=== PATIENT | female | born 1950 | race Caucasian/White ===

== ENCOUNTER 2021-04-20 09:49 | Outpatient (CLI) | payer OTHER, SELFPAY ==
--- NOTE | ~2021-04-20 | MM_ITS ---
EXAMINATION: MM screening [facility] HISTORY: Screening TECHNIQUE: Craniocaudal and mediolateral oblique 3-D tomosynthesis images were obtained and synthetic 2-D images were generated. CAD analysis was submitted and interpreted. COMPARISON: Comparison to multiple prior studies sequentially, with oldest reviewed study dated 05/23. BREAST PARENCHYMAL COMPOSITION: There are scattered areas of fibroglandular density. FINDINGS: There is no evidence of suspicious mass, calcification, or architectural distortion to sugg est malignancy in either breast. There has been no suspicious interval change. IMPRESSION: 1. No mammographic evidence of malignancy. 2. Recommend routine screening mammography in one year. BI-RADS Category 1: Negative Reviewed, dictated and finalized at location A.
--- NOTE | ~2021-04-20 | DEXA_ITS ---
Bone Density Report Name: Alina Lockhart Age: 71 Sex: Female Ethnicity: White Date of : 1950 Indication: postmenopausal; height loss; prior fracture; Referring Provider: Kandy Griffith Study: Bone densitometry was performed. Exam Date: April 20, 2021 Accession number: [id number] Bone Density: Region BMD T-score Z-score Classification AP Spine (L1-L4) 1.182 1.2 3.5 Normal Femoral Neck (Left) 0.838 -0.1 1.8 Normal Total Hip (Left) 0.973 0.3 1.9 Normal Total Hip Bilateral Avg 0.946 0.1 1.7 Normal Femoral Neck (Right) 0.836 -0.1 1.8 Normal Total Hip (Right) 0.918 -0.2 1.4 Normal World Health Organization criteria for BMD impression classify patients as: Normal (T-score at or above -1.0), Osteopenia (T-score between -1.0 and -2.5), or Osteoporosis (T-score at or below -2.5). 10-year Fracture Risk: FRAX not reported because: All T-scores for Spine Total, Hip Total, Femoral Neck at or above -1.0 Previous Exams: Region Exam Age BMD T-score BMD Change BMD Change Date g/cm2 vs Baseline vs Previous Total Hip(Left) 04/20/2021 71 0.973 0.3 -0.033(-3.3%)* -0.033(-3.3%)* 10/07/2017 67 1.006 0.5 Total Hip(Right) 04/20/2021 71 0.918 -0.2 -0.107(-10.5%) -0.107(-10.5%) 10/07/2017 67 1.026 0.7 *Denotes significance at 95% confidence level, LSC for Total Hip = 0.027 g/cm2 Clinical Information Provided by Patient: Has had a low trauma fracture Has used the following medications: Vitamin D, Calcium Patient maximum height was 63 Menopause Age: 47 No regular weight bearing exercise Drinks caffeinated beverages Onset of menses at age 12 Number of children 0 Impression: The patient has normal bone mass. The patient has risk factors, including: previous fracture. The BMD for the Total Hip(Left) decreased, changing by -3.3% since the last DXA exam. The BMD for the Total Hip(Right) decreased, changing by -10.5% since the last DXA exam. Discussion: BONE DENSITY IS ABOVE THE MINIMUM DESIRABLE LEVEL AT ALL SKELETAL SITES TESTED. This patient?s bone mineral density is above the minimum desirable level (T-score -1.0 or better) at all sites measured. The patient should follow a healthful lifestyle (good nutrition with adequate calcium and vitamin D, and appropriate weight-bearing exercise). Follow-Up: Consider repeating this study in 3 to 4 years to reassess this patient's status, or sooner if there is some new clinical indication. Reported by: MIRANDA on 04/20/2021 10:20:00 AM.
== END 2021-04-20 09:50 | disposition home or self-care (01) ==
LOC: ANHIMG 09:50
PROVIDERS: PCP Family Medicine; Visit Provider Family Medicine
DX: Z12.31 Encounter for screening mammogram for malignant neoplasm of breast (principal); Z78.0 Asymptomatic menopausal state
CPT/HCPCS: 77063; 77067; 77080

== ENCOUNTER 2022-02-27 13:54 | Outpatient (CLI) | payer OTHER, SELFPAY ==
--- NOTE | ~2022-02-27 | XR_ITS ---
XR hip RT 2V w AP pelvis DATE: 02/27/2022 14:35 INDICATION: Chronic right hip pain TECHNIQUE: AP pelvis. AP and lateral views of right hip COMPARISON: 03/04/2018 pelvis and bilateral hips FINDINGS: Degenerative disc disease of the lumbar spine. The pubic symphysis and sacroiliac joints are intact. There is degenerative change at the sacroiliac joints. Mild bilateral hip osteoarthritis. No pelvic fracture or bone destruction. No fracture or dislocation , avascular necrosis or bone destruction of the right hip. IMPRESSION: Mild bilateral hip osteoarthritis Degenerative change at the sacral iliac joints and degenerative disc disease of the lumbar spine Reviewed, dictated and finalized at location B.
--- NOTE | ~2022-02-27 | XR_ITS ---
EXAM: XR foot LT 2V DATE: 02/27/2022 14:36 HISTORY: M79.672 - Pain ACROSS BASES OF ALL TOES X 2MO POST FALL . COMPARISON: None available. FINDINGS: Decreased mineralization. Several toes are held in flexion which limits evaluation. Linear lucency in the navicular. Otherwise no fracture or dislocation. No lytic or blastic lesion. Moderate hallux valgus. Plantar and Achilles enthesopathy. No erosion or periosteal change. Soft tissues with in normal limits. IMPRESSION: Linear lucency in navicular bone, may represent nondisplaced fracture versus artifact. Co nsider CT of the foot to exclude fracture, particularly if there is mid foot pain/tenderness. Reviewed, dictated and finalized at location K. IMPRESSION: Linear lucency in navicular bone, may represent nondisplaced fractu re versus artifact. Consider CT of the foot to exclude fracture, particularly i f there is mid foot pain/tenderness.
--- NOTE | ~2022-02-27 | XR_ITS ---
XR lumbar spine 2-3V DATE: 02/27/2022 14:35 INDICATION: Low back chronic pain radiating to right hip TECHNIQUE: AP, lateral, coned lateral lumbosacral views COMPARISON: 03/04/2018 lumbar spine FINDINGS: Diffuse osteopenia. There is mild dextro scoliosis of the lumbar spine. Severe degenerative disease at L1-2, L2-3 and L3-4. Moderate degenerative disc disease at L4-5 and L5-S1. No fracture or dislocation or spondylolisthesis. The lumbar pedicles are intact. The sacroiliac joint s are intact. IMPRESSION: Multilevel degenerative disc disease, most prominent in the upper and mid lumbar spine Osteopenia Mild dextroscoliosis Reviewed, dictated and finalized at location B. IMPRESSION: Multilevel degenerative disc disease, most prominent in the upper a nd mid lumbar spine Osteopenia Mild dextroscoliosis
== END 2022-02-27 13:55 | disposition home or self-care (01) ==
PROVIDERS: PCP Family Medicine; Visit Provider Family Medicine
DX: M79.672 Pain in left foot (principal); M51.36 Other intervertebral disc degeneration, lumbar region; M85.88 Other specified disorders of bone density and structure, other site; M16.0 Bilateral primary osteoarthritis of hip; M53.3 Sacrococcygeal disorders, not elsewhere classified
CPT/HCPCS: 72100; 73502; 73620

== ENCOUNTER 2022-03-15 10:00 | Outpatient (CLI) | payer OTHER, SELFPAY ==
--- NOTE | ~2022-03-15 | CT_ITS ---
EXAMINATION: CT foot LT wo con DATE: 03/15/2022 10:34 INDICATION: Left foot pain. Possible navicular fracture on prior radiographs. TECHNIQUE: High resolution computed tomography (CT) of the left foot and ankle was performed without intravenous contrast. Additional sagittal and coronal reconstructions were performed. Automated expos ure control and iterative reconstruction technique were employed. The dose-length product was 283.96 mGy-cm. COMPARISON: Radiographs dated 02/27/2022 FINDINGS: Hallux valgus. Second hammertoe deformity and the third and fourth toes are clawed. No acute fracture . Polyarticular osteoarthritis, severe at the articulation between the head of the first metatarsal a nd the fibular sesamoid which appears sclerotic could be seen with sesamoiditis. The tibial sesamoid the chest is diminutive. Mild osteoarthritis at the majority the remaining joints throughout the left foot. Small corticated either degenerative loose osteochondral body versus heterotopic ossification situated between the anterior process of the calcaneus and the plantar margin of the proximal navicul ar. This large Achilles calcaneal spur with a few small splenic ossicles in the distal Achilles tendo n. Small plantar calcaneal spur. Soft tissues are unremarkable. No ankle joint effusion. IMPRESSION: 1. Chronic degenerative skeletal changes detailed above. No acute fracture. Reviewed, dictated and finalized at location A.
== END 2022-03-15 10:01 | disposition home or self-care (01) ==
PROVIDERS: PCP Family Medicine; Visit Provider Family Medicine
DX: M19.072 Primary osteoarthritis, left ankle and foot (principal)
CPT/HCPCS: 73700

== ENCOUNTER 2022-05-25 11:00 | Outpatient (RCR) | payer OTHER, SELFPAY ==
--- NOTE | 2022-04-13 13:29 | PTOPEVAL1 ---
Assessment and note entered by Barb Castelan, PT Evaluation Information Assessment Status Evaluation Diagnosis low back and right hip Onset many years for the back, right hip for this last year Subjective Information Back pain last 20 years. Saw a back specialist years ago, was told to swim every day b/c of spinal stenosis. No other providers have stated spinal stenosis. Feels right hip started bothering because of the way she walks Reported Pain Level Pain Score 1/10 low back, 0/10 right hip currently. Pain increases to an 8/10 in both sites at times: Self Report Assessment PT Clinical Summary Pt presents w/ c/o low back pain that she reports is chronic in nature and has in the last year had increasing right hip pain she feels is a result of how she walks (prior left foot injury). Evaluation shows decreased lumbar ROM, tight hamstrings and piriformis bilaterally, tenderness and tone bilat glute meds, lumbar paraspinals L>R, and decreased strength of lumbopelvic musculature especially of the transverse abdominus. Pt also demo's lumbopelvic instability with returning to neutral standing from lumbar AROM testing consistent with the lumbopelvic weakness. Today pt was educated on therapist's findings, and plan of care to address deficits and improve pt pain levels. Electrical stimulation also performed at end of session and HEP of cryotherapy to her low back provided. Plan of Care Interventions Electrical Stimulation,Hot Pack/Cold Pack,Manual Therapy,Neuro Re-education,Therapeutic Activities, Therapeutic Exercise,Ultrasound Other Interventions consider back brace to improve pain while in process of strengthening PT Services Indicated Yes Treatment Frequency and 2x weekly x 4 weeks Duration These treatments will address the objective and functional deficits as defined above. The patient will be advanced safely and appropriately in order for the patient to progress towards his/her prior level of function. Additional exercises will be introduced and as well as a comprehensive home exercise program upon discharge, if needed, ?to ensure carryover of functional gains achieved in the clinic. This treatment plan has been reviewed and agreement upon by the patient.
--- NOTE | 2022-05-28 14:26 | BUPTOPDC ---
Assessment and note entered by Barb Castelan, PT Evaluation Information Diagnosis low back and right hip Onset many years for the back, right hip for this last year Subjective Information Pt reports feeling much improved since starting therapy. Has had instances of 0/10 pain and at worst recently has been 3/10 in her back and hip. Reported Pain Level Pain Score 2,2: Self Report Additional Pain Score Comments States was mulching leaves this weekend, broke it up into three days. Assessment PT Clinical Summary Pt aruna's improved flexibility, improved lumbar ROM, improved strength of core, improve pain, and reports improved abilities and function. She has met her pain goals, her flexibility and ROM goals, education goals. Only goal unmet is strength of hips however pt has been provided home exercises for this. Pt has been educated on when appropriate to seek therapy if needed in the future and feels confident in her exercises and abilities, is happy with her progress and feels ready to be finished with therapy. Thus pt is being discharged from PT at this time. Plan of Care Interventions Electrical Stimulation,Hot Pack/Cold Pack,Manual Therapy,Neuro Re-education,Therapeutic Activities, Therapeutic Exercise,Ultrasound Other Interventions consider back brace to improve pain while in process of strengthening
== END 2022-06-01 10:09 | disposition home or self-care (01) ==
LOC: ANHHIPT 11:00
PROVIDERS: PCP Family Medicine; Visit Provider Family Medicine
DX: M54.50 Low back pain, unspecified (principal); M25.551 Pain in right hip
CPT/HCPCS: 97014; 97110; 97140; 97162; G0283

== ENCOUNTER 2022-05-30 00:57 | Day surgery (SDC) | payer OTHER, SELFPAY ==
[2022-05-22 13:40] VITALS: BMI 33.5
--- NOTE | 2022-05-29 16:50 | PM.HPGS ---
History of Present Illness History of Present Illness Consent: Risks, benefits, and alternatives have been discussed and questions answered. Patient agrees to proceed with procedure. Chief complaint: hx of colon polyps Narrative: Alina Lockhart is a 72 year old female referred for colon cancer screening. She had a tubular adenoma removed a little over 3 years ago. Review of Systems Review of Systems: All systems reviewed & are unremarkable except as noted in HPI and below PMFSH Past Medical History Medical History Depression GERD (gastroesophageal reflux disease) Gout High cholesterol History of shingles HTN (hypertension) Hypolipidemia Surgical History Surgical History H/O tubal ligation History of cholecystectomy History of ventral hernia repair laparoscopic incarcerated ventral hernia repair with Progrip mesh, DaVinci assisted Hx of tonsillectomy Family History Family History Mother Family history of multiple sclerosis Hypertension Family history of cardiovascular disease Cerebrovascular accident Father Hypertension Family history of gastrointestinal disorder Family history of congestive heart failure Grandparent Family history of cardiovascular disease Family history of congestive heart failure Other Diabetes mellitus Social History Social History Smoking status: Never smoker Second hand tobacco smoke exposure: No Alcohol intake: never Substance use: never Substance use type: does not use Living arrangements: alone Gender identity (if verbalized by the patient): Female Spiritual care concerns: No Agree to blood products: Yes Meds Home Medications and Allergies Home Medications Medication Instructions Recorded Confirmed Type multivitamin 1 tablet PO DAILY 06/11/19 05/22/22 History sertraline 100 mg tablet 100 mg PO DAILY 07/06/19 05/22/22 History trazodone 100 mg tablet 100 mg PO HS 07/06/19 05/22/22 History cholestyramine-aspartame 4 gram See Rx Instructions .Route 01/02/22 05/22/22 Rx oral powder for susp in a packet .COMPLEX #180 packets (Prevalite) deutetrabenazine 6 mg tablet 6 mg PO BID 02/26/22 05/22/22 History (Austedo) oxybutynin chloride 5 mg See Rx Instructions .Route 03/01/22 05/22/22 Rx tablet,extended release 24 hr .COMPLEX #90 tabs allopurinol 300 mg tablet See Rx Instructions .Route 03/05/22 05/22/22 Rx .COMPLEX #90 tabs atorvastatin 20 mg tablet See Rx Instructions .Route 03/05/22 05/22/22 Rx .COMPLEX #90 tabs omeprazole 20 mg capsule,delayed See Rx Instructions .Route 03/05/22 05/22/22 Rx release .COMPLEX #90 caps lisinopril 20 mg tablet See Rx Instructions .Route 03/30/22 05/22/22 Rx .COMPLEX #90 tabs triamterene 37.5 See Rx Instructions .Route 04/09/22 05/22/22 Rx mg-hydrochlorothiazide 25 mg .COMPLEX #90 caps capsule Allergies Allergy/AdvReac Type Severity Reaction Status Date / Time No Known Allergies Allergy Verified 05/30/22 09:24 Exam Const: General: alert Orientation/consciousness: patient oriented x3 Resp: Auscultation: clear to auscultation bilaterally Cardio: Rhythm: regular rhythm GI: GI Palp: Yes Soft to palpation and No Tenderness to palpation present (GI) Neuro: General: patient oriented x3 Assessment and Plan Assessment and plan (1) Colon cancer screening: Code(s): Z12.11 - Encounter for screening for malignant neoplasm of colon Status: Acute Assessment and Plan: Colonoscopy with possible biopsy or polypectomy or cautery or injection of substances.
[2022-05-30 09:31] VITALS: BP 158/89; PULSE 81; RESP 18; TEMP 37.2; O2SAT 99
[2022-05-30] MEDS: LACTATED RINGERS 1,000 ML 150 ML IV CONT (09:48)
--- NOTE | 2022-05-30 10:15 | WPDANESEPPF ---
Anes - Initial Pre Proc Eval Procedure: Operation Date: 05/30/22 11:00 Proposed Procedures p Screening Colonoscopy - Zhou Núñez MD Date/Time: 05/30/22 10:15 Surgeon: Zhou Núñez MD Pre Op Diagnosis: hx of colon polyps Patient Data Age: 72 Gender: F Height: 1.6 m Weight: 86.7 kg Last Vital Signs Temp 98.9 F 05/30/22 09:31 Pulse 81 05/30/22 09:31 Resp 18 05/30/22 09:31 BP 158/89 H 05/30/22 09:31 Pulse Ox 99 05/30/22 09:31 O2 Del Method Room Air 05/30/22 09:31 Allergies Allergy/AdvReac Type Severity Reaction Status Date / Time No Known Allergies Allergy Verified 05/30/22 09:24 Home Medications Medication Instructions Recorded Confirmed Type multivitamin 1 tablet PO DAILY 06/11/19 05/22/22 History sertraline 100 mg tablet 100 mg PO DAILY 07/06/19 05/22/22 History trazodone 100 mg tablet 100 mg PO HS 07/06/19 05/22/22 History cholestyramine-aspartame 4 gram See Rx Instructions .Route 01/02/22 05/22/22 Rx oral powder for susp in a packet .COMPLEX #180 packets (Prevalite) deutetrabenazine 6 mg tablet 6 mg PO BID 02/26/22 05/22/22 History (Austedo) oxybutynin chloride 5 mg See Rx Instructions .Route 03/01/22 05/22/22 Rx tablet,extended release 24 hr .COMPLEX #90 tabs allopurinol 300 mg tablet See Rx Instructions .Route 03/05/22 05/22/22 Rx .COMPLEX #90 tabs atorvastatin 20 mg tablet See Rx Instructions .Route 03/05/22 05/22/22 Rx .COMPLEX #90 tabs omeprazole 20 mg capsule,delayed See Rx Instructions .Route 03/05/22 05/22/22 Rx release .COMPLEX #90 caps lisinopril 20 mg tablet See Rx Instructions .Route 03/30/22 05/22/22 Rx .COMPLEX #90 tabs triamterene 37.5 See Rx Instructions .Route 04/09/22 05/22/22 Rx mg-hydrochlorothiazide 25 mg .COMPLEX #90 caps capsule Patient hx anesthesia problems: none Family hx anesthesia problems: none Results Review: All pre-operative results and documents have been reviewed as part of the pre-operative evaluation. [facility] Past Medical History Medical History (Updated 05/29/22 @ 16:50 by Zhou Núñez MD) Depression GERD (gastroesophageal reflux disease) Gout High cholesterol History of shingles HTN (hypertension) Hypolipidemia Surgical History Surgical History H/O tubal ligation History of cholecystectomy History of ventral hernia repair laparoscopic incarcerated ventral hernia repair with Progrip mesh, DaVinci assisted Hx of tonsillectomy Family History Family History Mother Family history of multiple sclerosis Hypertension Family history of cardiovascular disease Cerebrovascular accident Father Hypertension Family history of gastrointestinal disorder Family history of congestive heart failure Grandparent Family history of cardiovascular disease Family history of congestive heart failure Other Diabetes mellitus Social History Social History Smoking status: Never smoker Second hand tobacco smoke exposure: No Alcohol intake: never Substance use: never Substance use type: does not use Living arrangements: alone Gender identity (if verbalized by the patient): Female Spiritual care concerns: No Agree to blood products: Yes Anes - Eval Final PreProcedure Day of Procedure 05/30/22 10:15 Patient weight: obese Heart: regular rate and rhythm Lungs: clear to auscultation Airway: Mallampati scale class II Neurological: alert and oriented Last oral intake: >/= 8 hours ASA classification: III Emergent: no Anesthetic plan: proceed Anesthesia type and monitoring: general GIVS and standard monitoring Results Review: All pre-operative results and documents have been reviewed as part of the pre-operative evaluation. Informed Consent: The patient's anesthetic plan and i
[2022-05-30 10:44] VITALS: BP 115/76; PULSE 62; RESP 14; O2SAT 97
[2022-05-30 10:54] VITALS: BP 132/82; PULSE 73; RESP 20; O2SAT 95
[2022-05-30 11:04] VITALS: BP 147/90; PULSE 72; RESP 15; O2SAT 98
== END 2022-05-30 11:18 | disposition home or self-care (01) ==
PROVIDERS: PCP Family Medicine; Visit Provider Internal Medicine Gastroenterology
PROC: 0DJD8ZZ Inspection of Lower Intestinal Tract, Via Natural or Artificial Opening Endoscopic (ICD-10-PCS; CPT 45378; principal; 2022-05-30 11:00)
DX: Z12.11 Encounter for screening for malignant neoplasm of colon (principal); K64.8 Other hemorrhoids; Z86.010 Personal history of colon polyps; I10 Essential (primary) hypertension; E78.00 Pure hypercholesterolemia, unspecified; M10.9 Gout, unspecified; K21.9 Gastro-esophageal reflux disease without esophagitis; F32.A Depression, unspecified; E66.9 Obesity, unspecified; Z68.33 Body mass index [BMI] 33.0-33.9, adult
CPT/HCPCS: G0105; J2001; J2704; J7120

== ENCOUNTER 2022-08-09 15:30 | Outpatient (CLI) | payer OTHER, SELFPAY ==
--- NOTE | ~2022-08-09 | MM_ITS ---
EXAMINATION: MM screening [facility] BI [facility] HISTORY: Screening mammogram TECHNIQUE: Craniocaudal and mediolateral oblique 3-D tomosynthesis images were obtained and synthetic 2-D images were generated. CAD analysis was submitted and interpreted. COMPARISON: 04/20/2021, 06/10/2019, 06/02/2017 BREAST PARENCHYMAL COMPOSITION: There are scattered areas of fibroglandular density. FINDINGS: No suspicious mass, calcification, or architectural distortion are identified in either tacos ast to suggest malignancy. There has been no suspicious interval change. IMPRESSION: 1. No mammographic evidence of malignancy. 2. Recommend routine screening mammography in one year. BI-RADS Category 1: Negative Reviewed, dictated and finalized at location A. NT LEADER
== END 2022-08-09 15:31 | disposition home or self-care (01) ==
LOC: ANHIMG 15:31
PROVIDERS: PCP Family Medicine; Visit Provider Family Medicine
DX: Z12.31 Encounter for screening mammogram for malignant neoplasm of breast (principal)
CPT/HCPCS: 77063; 77067

== ENCOUNTER 2023-04-27 07:26 | Outpatient (CLI) | payer OTHER, SELFPAY ==
--- NOTE | 2023-04-27 08:01 | ECHO_ITS ---
Patient Info Name: Alina Lockhart Age: 73 years : 1950 Gender: Female Ht: 63 in Wt: 190 lbs BSA: 1.99 m2 HR: 88 bpm BP: 162 / 95 mmHg Heart Rhythm: Sinus Rhythm Technical Quality: Good Exam Date: 04/27/2023 8:16 AM Exam Location: [facility] Pulmonary Patient Status: Outpatient Admit Date: 04/27/2023 Staff Ordering Physician: Tyra Agarwal PA-C Chain Saw Operator: David Farrell RDCS Attending Provider: Tyra Agarwal PA-C Referring Physician: Any VILLEGAS; Exam Type: CA echo doppler color flow Study Info Indications - cadiac murmur Complete two-dimensional, color flow and Doppler transthoracic echocardiogram is performed. Summary 1. Complete two-dimensional, color flow and Doppler transthoracic echocardiogram is performed. 2. Left ventricular chamber dimension is normal. 3. Left ventricular systolic function is normal, estimated at 60-65%. 4. The left ventricular diastolic function is grade I diastolic dysfunction. 5. E/e' 14 is mildly elevated. 6. Left atrial chamber dimension is moderately enlarged. 7. There is moderate aortic valve sclerosis. 8. There is trace mitral valve regurgitation. 9. No pulmonary hypertension, estimated pulmonary arterial systolic pressure is 17 mmHg. 10. There is trivial pericardial effusion. Left Ventricle E/e' 14 is mildly elevated. Left ventricular chamber dimension is normal. Left ventricular systolic function is normal, estimated at 60-65%. The left ventricular diastolic function is grade I diastolic dysfunction. Right Ventricle Right ventricular systolic function is normal and with normal TAPSE 2.5 cm. Right ventricular chamber dimension is normal. Left Atria Left atrial chamber dimension is moderately enlarged. Right Atria Right atrial chamber dimension is normal. Aortic Valve The aortic valve is trileaflet. There is moderate aortic valve sclerosis. There is no aortic valve stenosis. There is no aortic valve regurgitation. Pulmonic Valve There is no pulmonic regurgitation. Mitral Valve There is no mitral valve stenosis. There is trace mitral valve regurgitation. Tricuspid Valve There is no tricuspid valve regurgitation. No pulmonary hypertension, estimated pulmonary arterial systolic pressure is 17 mmHg. Pericardium/Pleural There is trivial pericardial effusion. Inferior Vena Cava Normal inferior vena cava with >50% collapse upon inspiration consistent with normal right atrial pressure, 5 mmHg. Aorta The aortic root size at the sinus of Valsalva is normal. Left Ventricular Outflow Tract Name Value Normal LVOT 2D LVOT Diameter 2.0 cm LVOT Doppler LVOT Peak Gradient 3 mmHg LVOT Mean Gradient 2 mmHg LVOT VTI 22 cm LVOT VTI/AV VTI Ratio 0.5 LVOT Stroke Volume 65 ml LVOT CO 4.6 l/min LVOT CI 2.3 l/min/m2 Pulmonic Valve Name Value Normal
== END 2023-04-27 07:27 | disposition home or self-care (01) ==
PROVIDERS: PCP Family Medicine; Visit Provider Physician Assistant Medical
DX: R01.1 Cardiac murmur, unspecified (principal); I35.8 Other nonrheumatic aortic valve disorders
CPT/HCPCS: 93306

== ENCOUNTER 2023-08-13 15:00 | Outpatient (RCR) | payer OTHER, SELFPAY ==
--- NOTE | 2023-05-15 14:17 | PTOPEVAL1 ---
Assessment and note entered by Barb Castelan, PT Evaluation Information Assessment Status Evaluation Diagnosis L/R hip pain, back pain Therapy Conditions dizziness, oth abnormalities of gait and mobility BPPV Left ear Subjective Information Reports hips are better back is bothersome. Worst in the morning with getting out of bed. Walks hunched over Dizziness is most limiting and getting worse. Balance is much worse and I walk like I'm drunk Leaned forward to get something and upon getting up fell backward onto the deck. Notes with bending forwrad to get something, things get wavy . Reported Pain Level Pain Score 0: Self Report Assessment PT Clinical Summary Pt presents with diagnosis of low back pain, pain in left hip, and pain in right hip. Pt reports her balance and dizziness are her most limiting factors however, that her hips feel better but her back hurts worse in the mornings upon getting up. Pt demo's abnormal standing postures and alignment, decreased ROM and flexibility, gait and balance abnormality, and testing for left sided BPPV. Pt was educated in plan of care with focus initially on BPPV with back being secondary and hips being tertiary focuses, hence the extensive plan of care with increased frequency and longer duration. Pt will benefit from therapy to address deficits, improve function with less balance deficits, dizziness, and pain to improve her safe, and functional independence. Plan of Care Interventions Electrical Stimulation,Gait Training,Manual Therapy,Neuro Re-education,Therapeutic Activities, Therapeutic Exercise,Ultrasound PT Services Indicated Yes Treatment Frequency and 1-3x weekly x 8 weeks Duration These treatments will address the objective and functional deficits as defined above. The patient will be advanced safely and appropriately in order for the patient to progress towards his/her prior level of function. Additional exercises will be introduced and as well as a comprehensive home exercise program upon discharge, if needed, ?to ensure carryover of functional gains achieved in the clinic. This treatment plan has been reviewed and agreement upon by the patient.
--- NOTE | 2023-05-15 14:18 | OPREHPOC ---
Outpatient Therapy Plan of Care This is a Multidisciplinary Plan of Care that may contain components documented by all disciplines (PT, OT, and ST.) PT Problem 1 PT Problem #1 Knowledge Deficit PT Goal 1 Goal Pt will be independent in HEP Pt will verbalize understanding of diagnosis and prognosis Target Visit 10 PT Problem 2 PT Problem #2 Impaired Functional Mobil PT Goal 1 Goal Pt will demo 5 time sit>stand test of 20 seconds or less without pushing LEs against chair Target Visit 10 PT Goal 2 Goal Pt will demo score of 5 times sit>sales operations coordinator 15 seconds or less without pushing LEs against chair Target Visit 20 PT Problem 3 PT Problem #3 Impaired Balance PT Goal 1 Goal Pt will demo an increased in Tinetti score of 3 points or more Target Visit 10 PT Goal 2 Goal Pt will demo a Tinetti score consistent with low fall risk Target Visit 20 PT Problem 4 PT Problem #4 Impaired Vestibular Syste PT Goal 1 Goal Pt will report reduction of intensity of symptoms by 50% Target Visit 10 PT Goal 2 Goal Pt will report resolution of vestibular symptoms Target Visit 20 PT Problem 5 PT Problem #5 Pain PT Goal 1 Goal Pt will report improvement in pain in the mornings Target Visit 10 PT Goal 2 Goal Pt will report highest pain level of 1/10 upon waking in the mornings Target Visit 20
--- NOTE | 2023-06-17 13:24 | PTOPPROG ---
Assessment and note entered by Barb Castelan, PT Assessment Status Progress Report Diagnosis L/R hip pain, back pain, dizziness Subjective Information Hips are still doing well, no longer walks hunched over in the morning with waking up. Still feels like is walking like a drunk sometimes but not all the time, about 25% of the time. Bending forward is much better, still once in a while but is much better. Dizziness feels 75% improved Back feels 90% improved. Assessment PT Clinical Summary Pt has made significant progress in her dizziness and back pain through the course of therapy. Cont to report dizziness symptpoms however is overall improved she reports 75% as well as continued back pain ragning from -08/31 but 90% improved per patient report. Pt has met all short term goals but has termination clerk goals remaining to be achieved. Thus patient will benefit from therapy at a decreased frequency to continue improvements and meet all goals for most safe and functional independence. Plan of Care Interventions Electrical Stimulation,Gait Training,Manual Therapy,Neuro Re-education,Therapeutic Activities, Therapeutic Exercise,Ultrasound PT Services Indicated Yes Treatment Frequency and 1x weekly x 4 weeks Duration These treatments will address the objective and functional deficits as defined above. The patient will be advanced safely and appropriately in order for the patient to progress towards his/her prior level of function. Additional exercises will be introduced and as well as a comprehensive home exercise program upon discharge, if needed, ?to ensure carryover of functional gains achieved in the clinic. This treatment plan has been reviewed and agreement upon by the patient.
--- NOTE | 2023-07-18 12:05 | PTOPPROG ---
Assessment and note entered by Barb Castelan, PT Evaluation Information Assessment Status Progress Diagnosis L/R hip pain, back pain, dizziness Subjective Information Back continues to be improved Had a bad reaction after last session. Reports went to get her hair cut and leaned back 2 days later was so dizzy had to use the wall to walk. Lasted all day. Intensity of dizziness today is a 4/10 Assessment PT Clinical Summary Pt has attended therapy consistently for low back pain and vertigo. Pt has met all her low back goals and continues to maintain low levels of pain thus her back plan of care will be discharged in order to focus on her vestibular symptoms. Today with testing she shows a left nystagmus while testing the right ear. She has no symptoms with left sided testing today. Thus her canalith repositioning technique has been shifted to right side. Pt will benefit from ENT referral to r/o other inner ear issues as well as continue therapy to continue RESTORATIVE COORDINATOR maneuvers and r/o BPPV possibility. Plan of Care Interventions Gait Training,Neuro Re-education,Therapeutic Activities,Therapeutic Exercise PT Services Indicated Yes Treatment Frequency and 1-2x weekly x 4 weeks Duration These treatments will address the objective and functional deficits as defined above. The patient will be advanced safely and appropriately in order for the patient to progress towards his/her prior level of function. Additional exercises will be introduced and as well as a comprehensive home exercise program upon discharge, if needed, ?to ensure carryover of functional gains achieved in the clinic. This treatment plan has been reviewed and agreement upon by the patient.
--- NOTE | 2023-08-13 16:24 | PTOPDC ---
Assessment and note entered by Barb Castelan, PT Assessment Status Discharge Diagnosis back pain, dizziness Subjective Information Back improvement: 90% Dizziness feels 95% improved overall Feels like is still walking crooked. Thinks may be related to favoring her right leg. Sometimes will wake up with pain in the hip but will work it's way out. Reported Pain Level Pain Score 1: Self Report Assessment PT Clinical Summary Pt reports feeling 90% improved in low back and 95 % in vestibular symptoms. She has met all her goals for her low back and vestibular symptoms. She reports continued gait instability which appears at this point appear to be related to gluteus medius weakness. She was provided updated HEP including gluteus medius and instruction if she cont to have hip pain or instability after 4-6 weeks to return to therapy. For current POC, pt has met all her goals thus will be discharged from therapy at this time.
== END 2023-08-13 16:25 | disposition home or self-care (01) ==
LOC: ANHHIPT 15:00
PROVIDERS: PCP Family Medicine; Visit Provider Physician Assistant Medical
DX: M54.50 Low back pain, unspecified (principal); M25.551 Pain in right hip; M25.552 Pain in left hip; H81.12 Benign paroxysmal vertigo, left ear
CPT/HCPCS: 95992; 97110; 97112; 97162; 97750

== ENCOUNTER 2024-08-14 14:56 | Outpatient (CLI) | payer OTHER, SELFPAY ==
--- NOTE | ~2024-08-14 | MM_ITS ---
EXAMINATION: MM screening eulogio BI w whitley HISTORY: Screening TECHNIQUE: Craniocaudal and mediolateral oblique 3-D tomosynthesis images were obtained and synthetic 2-D images were generated. CAD analysis was submitted and interpreted. COMPARISON: Comparison to multiple prior studies sequentially, with oldest reviewed study dated 05/23. BREAST PARENCHYMAL COMPOSITION: Not dense: There are scattered areas of fibroglandular density. FINDINGS: There is no evidence of suspicious mass, calcification, or architectural distortion to sugg est malignancy in either breast. There has been no suspicious interval change. IMPRESSION: 1. No mammographic evidence of malignancy. 2. Recommend routine screening mammography in one year. BI-RADS Category 1: Negative Reviewed, dictated and finalized at location A. RMINATOR
--- OUTSIDE RECORDS SUMMARY | 2024-08-14 15:01 | XMS_ITS | Clinical Summary ---
Author Organization [facility] Address [address] [place] [address]. [place] [address] [place] [address] Care Team Providers Care Slot Shift Supervisor Name Role Phone Unavailable Primary Care Provider Unavailabl e Social History Tobacco Use Types Packs/Day Years Used Date Smoking Tobacco: Never Assessed Comments Unknown Sex and Gender Information Value Date Recorded Sex Assigned at Not on file Legal Sex Female 7:04 PM CDT Gender Identity Not on file Sexual Orientation Not on file Plan of Treatment Health Maintenance Due Date Last Done Comments Colorectal Cancer Screening Colonoscopy (10 Years) 1949 Hepatitis C 1967 DTaP, Tdap and Td Vaccines ( 1 - Tdap) 1968 Zoster Vaccines (1 of 2) 1999 Dexa Scan (General) 2014 Pneumococcal Vaccine: 65+ Ye ars (1 of 1 - PCV) 2014 RSV Immunization or 60+ Years (1 - 1-dose 75+ series) 2024 COVID-19 Vaccine ( - 2023-2 5 season) 2024 Influenza Adult (#1) 2024 Meningococcal Vaccine Aged Out No yaima suleiman eligible based on patient's age to complete this topic RSV Immunizations Under 20 Months Aged Out No longer eligible based on patient's age to complete this topic
--- OUTSIDE RECORDS SUMMARY | 2024-08-14 15:01 | XMS_ITS | Encounter Summary ---
Author Organization [facility] Address [address] [place] [address] Care Team Providers Care Veterinarian Small Animal Name Role Phone Neeraj Wilson MD Primary Care Provider [phone] Reason for Referral * Neurology (Routine) - Pending Review Specialty Diagnoses / Procedures Referred By Contac t Referred To Contact Diagnoses Abnormality of gait and mobility Loss of balance Numbness and tingling in both hands Procedures [place] [address] [place] [address] Phone: tel: fax: [address] [phone] Referral ID Status Reason Start Date Expiration Date V isits Requested Visits Authorized [id number] Pending Review 08/13/2024 09/12/2025 1 1 CLIMBING TEAM MEMBER Reason for Visit * Reason Comments Tardive dyskinesia * Consultation (Routine) - Authorized Specialty Diagnoses / Procedures Referred By Contac t Referred To Contact Neurology Diagnoses Tardive dyskinesia Neeraj Wilson MD [facility] [place] [address] Phone: tel: fax: [place] [id number] [address] Phone: tel: fax: Referral ID Status Reason Start Date Expiration Date Visits Requested Visits Authorized [id number] Authorized Specialty Services Required 08/12/2024 08/13/2025 12 12 Encounter Details Date Type Department Care Team (Late st Contact Info) Description 08/13/2024 9:00 AM ROCK CLIMBING TEAM MEMBER Office Visit [facility] [address] [facility] [address], [place] [address] [place] [address] [facility] [address], [place] [address] Abnormality of gait and mobility (Primary Dx); Tardive dyskinesia; Loss of balance; Numbness and tingling in both hands Social History Tobacco Use Types Packs/Day Years Used Date Smoking Tobacco: Never Smokeless Tobacco: Never Alcohol Use Standard Drinks/Week Comments Not Currently 0 (1 standard drink = 0.6 oz pur e alcohol) Comments No Sex and Gender Information Value Date Recorded Sex Assigned at Not on file Legal Sex Female 4:56 PM ROCK CLIMBING TEAM MEMBER Gender Identity Not on file Sexual Orientation Not on file documented as of this encounter Last Filed Vital Signs Vital Sign Reading Time Taken Comments Blood Pressure 120/70 08/13/2024 8:54 AM ROCK CLIMBING TEAM MEMBER Pulse 87 08/13/2024 8:54 AM ROCK CLIMBING TEAM MEMBER Temperature - - Respiratory Rate 16 08/13/2024 8:54 AM ROCK CLIMBING TEAM MEMBER Oxygen Saturation 98% 08/13/2024 8:54 AM ROCK CLIMBING TEAM MEMBER Inhaled Oxygen Concentration - - Weight 83.5 kg (184 lb 1.6 oz) 08/13/2024 8:54 A M ROCK CLIMBING TEAM MEMBER Height 160 cm (5' 3 ) 08/13/2024 8:54 AM ROCK CLIMBING TEAM MEMBER Body Mass Index 32.61 08/13/2024 8:54 AM ROCK CLIMBING TEAM MEMBER documented in this encounter Ordered Prescriptions Prescription Sig Dispense Quantity Refills Last Filled Start Date End Date deutetrabenazine (Austedo) 6 mg tablet tablet Take 1 tablet (6 mg total) by mouth 2 (two) times a day 60 tablet 11 08/13/2024 documented in this encounter Progress Notes * Simone Sherwood II, MD - 08/13/2024 9:00 AM CST Subjective: Patient ID: Alina Lockhart is a 74 y.o. female dyskinesia and complaints of memory loss and word-finding difficulties. HPI The patient returns today for her annual follow-up visit. As regards to tardive dyskinesia she is on Austedo 6 mg b.i.d. without any side effects. Her tardive dyskinesia is confined to the perioral region into both feet. She was currently happy with the control of her tardive dyskinesia. She remains on sertraline 100 mg per day. As regards her complaints of memory loss and word-finding difficulties this has no longer an issue for the patient. Her biggest concern right now is gait difficulties that she developed over the past year. She tellsme she tends to lean to 1 side and she was issues with her balance. She did not report any falls. She did not report any headache neck pain or back pain. She can not identify any triggers. There are no other aggravating or relieving factors. Symptoms came on gradually She does report numbness but th is has mainly in her hands. She was trouble feeling things with her hands and she drops things withher hands. There is no numbness of the lower extremities. There is no neuropathic pain. She denies having any radicular symptoms. There is no constipation there is no REM sleep behavior disorder symptoms. Her sense of smell is preserved. There is no loss of bladder or bowel control. She indicates that she had physical therapy in the past for the same problem but found it to be of no benefit. Review of Systems Constitutional: Negative for activity change and fever. HENT: Negative for hearing loss, tinnitus and trouble swallowing. Dry eyes Eyes: Positive for visual disturbance. Negative for photophobia. Diplopia Respiratory: Negative for cough. Cardiovascular: Negative for palpitations. Gastrointestinal: Negative for abdominal pain, constipation, diarrhea, nausea and vomiting. Endocrine: Negative for cold intolerance and heat intolerance. Genitourinary: Negative for difficulty urinating, frequency and hematuria. Musculoskeletal: Negative for arthralgias, back pain and neck pain. She walks like she is drunk she walks crooked. She leans to the right. Skin: Negative for rash. Neurological: Negative. Negative for dizziness, tremors, seizures, syncope, facial asymmetry, speech difficulty, weakness, light-headedness, numbness and headaches. Psychiatric/Behavioral: Negative for agitation, behavioral problems and dysphoric mood. Objective: Neurological Exam Mental Status Alert. Recalls 3 of 3 objects immediately. At 3 minutes recalls 3 of 3 objects. Speech is normal. Language is fluent with no aphasia. Able to spell words backwards. Motor The following abnormal movements were seen: Nichole-oral dyskinesia, dyskinetic movements of the feet.. Sensory Sensation is intact to light touch, pinprick, vibration and proprioception in all four extremities. (+) Rhomberg. Reflexes Right Left Brachioradialis 1+ 1+ Biceps 1+ 1+ Triceps 1+ 1+ Patellar 1+ 1+ Achilles 0 0 Coordination Right: Gwbpai-zo-jvdf normal. Rapid alternating movement normal. Abui-jd-avbv normal.Left: Qdjwrn-rj-olpv normal. Rapid alternating movement normal. Thnz-qh-ojnr normal. Gait Slow cautious with decreased arm swing. Physical Exam Constitutional: Appearance: Normal appearance. She is well-developed. She is obese. HENT: Head: Normocephalic and atraumatic. Eyes: Conjunctiva/sclera: Conjunctivae normal. Cardiovascular: Rate and Rhythm: Normal rate and regular rhythm. Heart sounds: Normal heart sounds. Pulmonary: Effort: Pulmonary effort is normal. Abdominal: Palpations: Abdomen is soft. Musculoskeletal: Cervical back: Normal range of motion. Right lower leg: No edema. Left lower leg: No edema. Skin: General: Skin is warm. Neurological: Mental Status: She is alert. Deep Tendon Reflexes: Reflex Scores: Tricep reflexes are 1+ on the right side and 1+ on the left side. Bicep reflexes are 1+ on the right side and 1+ on the left side. Brachioradialis reflexes are 1+ on the right side and 1+ on the left side. Patellar reflexes are 1+ on the right side and 1+ on the left side. Achilles reflexes are 0 on the right side and 0 on the left side. Psychiatric: Speech: Speech normal. Assessment/Plan: 1. Tardive dyskinesia the condition has not progressed she was currently happy with her current treatment her Austedo will be continued at the current dose of 6 mg b.i.d.. 2. Disturbance of gait imbalance. 3. Numbness of the hands. The patient will be sent for EMG nerve conduction velocity testing of the upper and lower extremities. 4. Cognitive issues and word-finding difficulties this has no longer an issue this will be monitored for recurrence and progression. Follow up is planned upon completion of the EMG nerve conduction velocity study. Medications Current Outpatient Medications: allopurinoL (ZYLOPRIM) 300 mg tablet, Take 1 tablet (300 mg total) by mouth daily, Disp: , Rfl: atorvastatin (LIPITOR) 20 mg tablet, Take 1 tablet (20 mg total) by mouth daily, Disp: , Rfl: cholestyramine-aspartame (QUESTRAN LIGHT) 4 gram powder in packet, PLEASE SEE ATTACHED FOR DETAILEDDIRECTIONS, Disp: , Rfl: deutetrabenazine (Austedo) 6 mg tablet, Take 1 tablet (6 mg total) by mouth 2 (two) times a day, Disp: , Rfl: lisinopril (PRINIVIL,ZESTRIL) 20 mg tablet, Take 1 tablet (20 mg total) by mouth daily, Disp: , Rfl: oilojwby58-zvva-Fylvirsb-qszgw 27 mg iron-1.13 mg-581.92 mg capsule, Take by mouth, Disp: , Rfl: omeprazole (PriLOSEC) 20 mg capsule, Take 1 capsule (20 mg total) by mouth daily, Disp: , Rfl: oxybutynin XL (DITROPAN-XL) 5 mg 24 hr tablet, , Disp: , Rfl: sertraline (ZOLOFT) 100 mg tablet, Take 1 tablet (100 mg total) by mouth daily, Disp: , Rfl: traZODone (DESYREL) 50 mg tablet, Take 2 tablets (100 mg total) by mouth nightly, Disp: , Rfl: triamterene-hydroCHLOROthiazide 37.5-25 mg per capsule, Take 1 tablet/capsule by mouth daily, Disp:, Rfl: Xiidra 5 % dropperette, 0.1 each (1 drop total) 2 (two) times a day, Disp: , Rfl: deutetrabenazine (Austedo) 9 mg tablet, Take 1 tablet by mouth 2 (two) times a day (Patient not taking: Reported on 08/13/2024), Disp: 180 tablet, Rfl: 3 fluticasone propionate (FLONASE) 50 mcg/actuation nasal spray, , Disp: , Rfl: History Family History Problem Relation Age of Onset Hypertension Mother Stroke Mother Multiple sclerosis Mother Hypertension Father Diabetes Sister Hypertension Sister Active Ambulatory Problems Diagnosis Date Noted QT prolongation 09/05/2023 Aortic valve sclerosis 09/05/2023 Primary hypertension 09/05/2023 Mixed hyperlipidemia 09/05/2023 Resolved Ambulatory Problems Diagnosis Date Noted Word finding difficulty 06/24/2023 Past Medical History: Diagnosis Date Balance problems Cataract Depression Dizziness Edema GERD (gastroesophageal reflux disease) Gout High cholesterol Hypertension Left hip pain Murmur, cardiac Nonrheumatic aortic (valve) stenosis Tardive dyskinesia Social History Tobacco Use Smoking status: Never Smokeless tobacco: Never Substance and Sexual Activity Drug use: Not Currently Sexual activity: None Alcohol Use: Not on file CLIMBING TEAM MEMBER documented in this encounter Plan of Treatment Scheduled Orders Name Type Priority Associated Diagnoses Orde r Schedule EMG/NCV - Neurology Routine Abnormality of gait and mobility Loss of balance Numbness and tingling in both hands 1 Occurrences starting 08/13/2024 until 08/13/2025 documented as of this encounter Visit Diagnoses Diagnosis Abnormality of gait and mobility- Primary Tardive dyskinesia Subacute dyskinesia due to drugs Loss of balance Abnormality of gait Numbness and tingling in both hands documented in this encounter Discontinued Medications Medication Sig Discontinue Reason Start Date End Da te deutetrabenazine (Austedo) 9 mg tablet Take 1 tablet by mouth 2 (two) times a day Duplicate order 06/24/2023 08/13/2024 deutetrabenazine (Austedo) 6 mg tablet Take 1 tablet (6 mg total) by mouth 2 (two) times a day Reorder 08/13/2024 documented as of this encounter Historical Medications * This list may reflect changes made after this encounter. Xiidra 5 % dropperette 0.1 each (1 drop total) 2 (two) times a day 07/13/2024 added in this encounter Orders Outpatient Referral Count Last Ordered Date Fir st Ordered Date AMB REFERRAL TO NEUROLOGY 1 08/13/2024 documented in this encounter Care Teams Veterinarian Small Animal Relationship Specialty Start Date End Date Neeraj Wilson MD [address] [place] [id number] PCP - General Family Medicine 06/25/22 documented as of this encounter
--- OUTSIDE RECORDS SUMMARY | 2024-08-14 15:01 | XMS_ITS | Clinical Summary ---
Author Organization [facility] [address] [place] [address] Care Team Providers Care Grinder Dresser Name Role Phone Neeraj Wilson MD Primary Care Provider [phone] Allergies No known active allergies Medications lisinopril (PRINIVIL,ZESTR IL) 20 mg tablet Take 1 tablet (20 mg total) by mouth daily 9 Active triamterene-hyd roCHLOROthiazid e 37.5-25 mg per capsule Take 1 tablet/capsule by mouth daily 9 Active sertraline (ZOLOFT) 100 mg tablet Take 1 tablet (100 mg total) by mouth daily 9 Active omeprazole (PriLOSEC) 20 mg capsule Take 1 capsule (20 mg total) by mouth daily 9 Active fluticasone propionate (FLONASE) 50 mcg/actuation nasal spray 9 Active allopurinoL (ZYLOPRIM) 300 mg tablet Take 1 tablet (300 mg total) by mouth daily 9 Active atorvastatin (LIPITOR) 20 mg tablet Take 1 tablet (20 mg total) by mouth daily 9 Active traZODone (DESYREL) 50 mg tablet Take 2 tablets (100 mg total) by mouth nightly 9 Active oxybutynin XL (DITROPAN-XL) 5 mg 24 hr tablet 1 Active efkrihak86-arju -Lmfolate-algal 27 mg iron-1.13 mg-581.92 mg capsule Take by mouth Active cholestyramine- aspartame (QUESTRAN LIGHT) 4 gram powder in packet PLEASE SEE ATTACHED FOR DETAILED DIRECTIONS 4 Active Xiidra 5 % dropperette 0.1 each (1 drop total) 2 (two) times a day 4 Active deutetrabenazin e (Austedo) 6 mg tablet tablet Take 1 tablet (6 mg total) by mouth 2 (two) times a day 60 tablet 11 5 Active deutetrabenazin e (Austedo) 9 mg tablet Take 1 tablet by mouth 2 (two) times a day 180 tablet 3 3 08/13/19 25 Discontin ued(Dupli merari order) deutetrabenazin e (Austedo) 6 mg tablet Take 1 tablet (6 mg total) by mouth 2 (two) times a day 08/13/19 25 Discontin ued(Reord er) Active Problems Problem Noted Date Diagnosed Date QT prolongation 09/05/2023 Aortic valve sclerosis 09/05/2023 Primary hypertension 09/05/2023 Mixed hyperlipidemia 09/05/2023 Resolved Problems Problem Noted Date Diagnosed Date Resolved Date Word finding difficulty 06/24/202308/22 Encounters Date Type Department Care Team Description 08/13/2024 9:00 AM SONG LYRICIST Office Visit [facility] [address] [address] Simone Sherwood II, MD Abnormality of gait and mobility (Primary Dx); Tardive dyskinesia; Loss of balance; Numbness and tingling in both hands from Last 3 Months Surgical History Surgery Date Site/Laterality Comments CHOLECYSTECTOMY HERNIA REPAIR TUBAL LIGATION TONSILLECTOMY Medical History Medical History Date Comments Cataract Depression Hypertension High cholesterol Murmur, cardiac Nonrheumatic aortic (valve) stenosis Dizziness Gout GERD (gastroesophageal reflux disease) Edema Tardive dyskinesia Left hip pain Balance problems Family History Medical History Relation Name Comments Hypertension Father Hypertension Mother Multiple sclerosis Mother Stroke Mother Diabetes Sister Hypertension Sister Relation Name Status Comments Father Mother Sister Social History Tobacco Use Types Packs/Day Years Used Date Smoking Tobacco: Never Smokeless Tobacco: Never Tobacco Cessation:Counseling Given: Not Answered Alcohol Use Standard Drinks/Week Comments Not Currently 0 (1 standard drink = 0.6 oz pur e alcohol) Comments No Sex and Gender Information Value Date Recorded Sex Assigned at Not on file Legal Sex Female 4:56 PM SONG LYRICIST Gender Identity Not on file Sexual Orientation Not on file Obstetrics History Last Filed Vital Signs Vital Sign Reading Time Taken Comments Blood Pressure 120/70 08/13/2024 8:54 AM SONG LYRICIST Pulse 87 08/13/2024 8:54 AM SONG LYRICIST Temperature - - Respiratory Rate 16 08/13/2024 8:54 AM SONG LYRICIST Oxygen Saturation 98% 08/13/2024 8:54 AM SONG LYRICIST Inhaled Oxygen Concentration - - Weight 83.5 kg (184 lb 1.6 oz) 08/13/2024 8:54 A M SONG LYRICIST Height 160 cm (5' 3 ) 08/13/2024 8:54 AM SONG LYRICIST Body Mass Index 32.61 08/13/2024 8:54 AM SONG LYRICIST Plan of Treatment Health Maintenance Due Date Last Done Comments Colon Cancer Screening-Colonoscopy 1950 Depression Screening 1950 Hepatitis C Screening 1949 Osteoporosis Screening-Bone Density Scan 1949 DTaP/Tdap/Td Vaccine (1 - Tdap) 1960 Hepatitis B Screening 1967 Zoster Vaccine (1 of 2) 1999 Well Visit 65+ 2014 Influenza Vaccine (#1) 2024 9, 03/31/2018, 04/10/2017, Additional history exists Fall Risk Assessment 08/13/2025 08/13/2024 Pneumococcal vaccine 65+ Completed 017, 04/16/2016, 06/08/2014 Insurance [facility] Care Teams Grinder Dresser Relationship Specialty Start Date End Date Neeraj Wilson MD [address] [place] [id number] PCP - General Family Medicine 06/25/22
--- OUTSIDE RECORDS SUMMARY | 2024-08-14 15:01 | XMS_ITS | Referral Summary ---
Author Organization [facility] [address] [place] [id number] Care Team Providers Care Pharmacy Intern Name Role Phone Neeraj Wilson MD Primary Care Provider [phone] Encounters Date Type Department Care Team Description 08/13/2024 9:00 AM CONSERVATION OF RESOURCES COMMISSIONER Office Visit [facility] [address], [place] [address] Simone Sherwood II, MD Abnormality of gait and mobility (Primary Dx); Tardive dyskinesia; Loss of balance; Numbness and tingling in both hands from Last 3 Months Allergies No known active allergies Medications lisinopril [...] 5 mg 24 hr tablet 1 Active [id number] -Lmfolate-algal 27 mg iron-1.13 mg-581.92 mg capsule [...] Date Resolved Date Word finding difficulty 06/24/202308/22 Social History Tobacco Use Types Packs/Day Years Used Date Smoking Tobacco: Never Smokeless Tobacco: Never Tobacco Cessation:Counseling Given: Not Answered Alcohol Use Standard Drinks/Week Comments Not Currently 0 (1 standard drink = 0.6 oz pur e alcohol) Comments No Sex and Gender Information Value Date Recorded Sex Assigned at Not on file Legal Sex Female 4:56 PM CONSERVATION OF RESOURCES COMMISSIONER Gender Identity Not on file Sexual Orientation Not on file Last Filed Vital Signs Vital Sign Reading Time Taken Comments Blood Pressure 120/70 08/13/2024 8:54 AM CONSERVATION OF RESOURCES COMMISSIONER Pulse 87 08/13/2024 8:54 AM CONSERVATION OF RESOURCES COMMISSIONER Temperature - - Respiratory Rate 16 08/13/2024 8:54 AM CONSERVATION OF RESOURCES COMMISSIONER Oxygen Saturation 98% 08/13/2024 8:54 AM CONSERVATION OF RESOURCES COMMISSIONER Inhaled Oxygen Concentration - - Weight 83.5 kg (184 lb 1.6 oz) 08/13/2024 8:54 A M CONSERVATION OF RESOURCES COMMISSIONER Height 160 cm (5' 3 ) 08/13/2024 8:54 AM CONSERVATION OF RESOURCES COMMISSIONER Body Mass Index 32.61 08/13/2024 8:54 AM CONSERVATION OF RESOURCES COMMISSIONER Plan of Treatment [place] [address] Care Teams Pharmacy Intern Relationship Specialty Start Date End Date Neeraj Wilson MD [address] [place] [id number] PCP - General Family Medicine 06/25/22
== END 2024-08-14 14:57 | disposition home or self-care (01) ==
LOC: ANHIMG 14:57
PROVIDERS: PCP Physician Assistant Medical; Visit Provider Physician Assistant Medical
DX: Z12.31 Encounter for screening mammogram for malignant neoplasm of breast (principal)
CPT/HCPCS: 77063; 77067

== ENCOUNTER 2025-02-16 10:43 | Outpatient (CLI) | payer OTHER, SELFPAY ==
--- OUTSIDE RECORDS SUMMARY | 2025-02-16 10:51 | XMS_ITS | Clinical Summary ---
Author Organization [facility] [address] [place] [id number] Care Team Providers Care Inspector [employer]ar [employer] Name Role Phone Neeraj Wilson MD Primary Care Provider [phone] Allergies No known active allergies Medications lisinopril (PRINIVIL,ZESTRI L) 20 mg tablet Take 1 tablet (20 mg total) by mouth daily 9 Active triamterene-hydr oCHLOROthiazide 37.5-25 mg per capsule Take 1 tablet/capsule [...] 5 mg 24 hr tablet 1 Active gsltdjno86-[id number]- Lmfolate-algal 27 mg iron-1.13 mg-581.92 mg capsule Take by mouth Active cholestyramine-a spartame (QUESTRAN LIGHT) 4 gram powder in packet PLEASE SEE ATTACHED FOR DETAILED DIRECTIONS 4 Active Xiidra 5 % dropperette 0.1 each (1 drop total) 2 (two) times a day 4 Active deutetrabenazine (Austedo) 6 mg tablet tablet Take 1 tablet (6 mg total) by mouth 2 (two) times a day 60 tablet 11 5 Active Active Problems Problem Noted Date Diagnosed Date Numbness and tingling in both hands 08/31/2024 Loss of balance 08/31/2024 Abnormality of gait and mobility 08/31/2024 Hereditary and idiopathic neuropathy 08/31/2024 QT prolongation 09/05/2023 Aortic valve sclerosis 09/05/2023 Primary hypertension 09/05/2023 Mixed hyperlipidemia 09/05/2023 Resolved Problems Problem Noted Date Diagnosed Date Resolved Date Word finding difficulty 06/24/202308/22 Encounters Date Type Department Care Team Description 12/17/2024 Telephone [facility] [address] [facility] [address] [address] Simone Sherwood II, MD from Last 3 Months Surgical History Surgery [...] on file Legal Sex Female 4:56 PM PLANNING DIVISION SUPERINTENDENT Gender Identity Not on file Sexual Orientation Not on file Obstetrics History Last Filed Vital Signs Vital Sign Reading Time Taken Comments Blood Pressure 126/70 09/03/2024 9:20 AM PLANNING DIVISION SUPERINTENDENT Pulse 90 09/03/2024 9:20 AM PLANNING DIVISION SUPERINTENDENT Temperature - - Respiratory Rate 17 09/03/2024 9:20 AM PLANNING DIVISION SUPERINTENDENT Oxygen Saturation 99% 09/03/2024 9:20 AM PLANNING DIVISION SUPERINTENDENT Inhaled Oxygen Concentration - - Weight 84.2 kg (185 lb 9.6 oz) 09/03/2024 9:20 A M PLANNING DIVISION SUPERINTENDENT Height 160 cm (5' 3) 09/03/2024 9:20 AM PLANNING DIVISION SUPERINTENDENT Body Mass Index 32.88 09/03/2024 9:20 AM PLANNING DIVISION SUPERINTENDENT Plan of Treatment Health Maintenance Due Date Last Done Comments Colon Cancer Screening-Colonoscopy 1950 Depression Screening 1950 Hepatitis C Screening 1950 Osteoporosis Screening-Bone Density Scan 1950 DTaP/Tdap/Td Vaccine (1 - Tdap) 1960 Hepatitis B Screening 1967 Zoster Vaccine (1 of 2) 1999 Well Visit 65+ 2014 Influenza Vaccine (#1) 2025 9, 03/31/2018, 04/10/2017, Additional history exists Fall Risk Assessment 09/03/2025 09/03/2024, 08/13/19 25 Pneumococcal vaccine 65+ Completed 017, 04/16/2016, 06/08/[address] [place] [address] [place] [address] Care Teams Inspector [employer]ar And Electronics Relationship Specialty Start Date End Date Neeraj Wilson MD [address] [place] [id number] PCP - General Family Medicine 06/25/22
--- OUTSIDE RECORDS SUMMARY | 2025-02-16 10:52 | XMS_ITS | Referral Summary ---
Author Organization [facility] [address] [place] [address] Care Team Providers Care Power Station Operator Name Role Phone Neeraj Wilson MD Primary Care Provider [phone] Encounters Date Type Department Care Team Description 12/17/2024 Telephone [facility] [address] [facility] [address] [place] [address] Simone Sherwood II, MD from Last 3 Months Allergies No known [...] 5 mg 24 hr tablet 1 Active [id number]-goci- Lmfolate-algal 27 mg iron-1.13 mg-581.92 mg capsule [...] on file Legal Sex Female 4:56 PM CASTING AND LOCKER ROOM SERVICER Gender Identity Not on file Sexual Orientation Not on file Last Filed Vital Signs Vital Sign Reading Time Taken Comments Blood Pressure 126/70 09/03/2024 9:20 AM CASTING AND LOCKER ROOM SERVICER Pulse 90 09/03/2024 9:20 AM CASTING AND LOCKER ROOM SERVICER Temperature - - Respiratory Rate 17 09/03/2024 9:20 AM CASTING AND LOCKER ROOM SERVICER Oxygen Saturation 99% 09/03/2024 9:20 AM CASTING AND LOCKER ROOM SERVICER Inhaled Oxygen Concentration - - Weight 84.2 kg (185 lb 9.6 oz) 09/03/2024 9:20 A M CASTING AND LOCKER ROOM SERVICER Height 160 cm (5' 3) 09/03/2024 9:20 AM CASTING AND LOCKER ROOM SERVICER Body Mass Index 32.88 09/03/2024 9:20 AM CASTING AND LOCKER ROOM SERVICER Plan of Treatment Not on file [place] [address] [place] [address] [facility] Care Teams Power Station Operator Relationship Specialty Start Date End Date Neeraj Wilson MD [address] [place] [id number] PCP - General Family Medicine 06/25/22
== END 2025-02-16 10:44 | disposition home or self-care (01) ==
PROVIDERS: PCP Family Medicine
DX: H90.3 Sensorineural hearing loss, bilateral (principal); H93.8X9 Other specified disorders of ear, unspecified ear; R42 Dizziness and giddiness; Z82.2 Family history of deafness and hearing loss; H74.8X3 Other specified disorders of middle ear and mastoid, bilateral; H93.93 Unspecified disorder of ear, bilateral
CPT/HCPCS: 92557; 92567

== ENCOUNTER 2025-02-24 12:30 | Outpatient (RCR) | payer OTHER, SELFPAY ==
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
--- NOTE | 2024-12-02 17:11 | OPREHPOC ---
Outpatient Therapy Plan of Care This is a Multidisciplinary Plan of Care that may contain components documented by all disciplines (PT, OT, and ST.) PT Problem 1 PT Problem #1 Knowledge Deficit PT Goal 1 Goal / Goal Update Pt will be independent in HEP Pt will verbalize understanding of diagnosis and prognosis Target Visit 10 PT Problem 2 PT Problem #2 Impaired Balance PT Goal 1 Goal / Goal Update Pt will demonstrate Tinetti test of 20 or greater for improved balance Target Visit 5 PT Goal 2 Goal / Goal Update Pt will demonstrate Tinetti test of 22 or greater for improved balance Target Visit 10 PT Problem 3 PT Problem #3 Impaired Sensation PT Goal 1 Goal / Goal Update Pt will demonstrate negative Michael-Halpike testing bilat Target Visit 10
--- NOTE | 2025-02-03 12:57 | PTOPPROG ---
Assessment and note entered by Barb Castelan, PT Evaluation Information Assessment Status Progress Diagnosis Dizziness and Giddiness ICD-10 Condition Codes (PT) Difficulty Walking R26.2,Abnormalities of gait and mobility R26.9,Dizziness and Giddiness R42 Subjective Information Sit>stand will still get dizzy, a little feels like is more blood pressure related Off balance sensation with walking No longer feels like she is wobbling sitting in a chair Spinning occurring with the sit>stand activities Pt reports feeling like she has made some progress with her activities. Realizes she holds her breath a lot and is being conscious of that. Assessment PT Clinical Summary Pt has attended therapy consistently for dizziness /vertigo and gait/balance deficits. Multiple facets to her balance and symptoms have been addressed including resolution of BBPV, education on breathing with activity to decrease Valsalva maneuvering, and most recently orthostatic hypotension and cervicogenic possibility of continued symptoms. L BPPV appears resolved, no other (+) testing for BPPV this date. However continues to have symptoms she reports mostly with sit>stand, and feeling off-balance with walking. Will attempt short POC for cervicogenic type dizziness while also testing use of low-grade compression stockings in symptom reduction. Should there be minimal improvement, referral back to primary for additional testing and specialist involvement. Plan of Care Interventions Electrical Stimulation,Gait Training,Hot Pack/Cold Pack,Manual Therapy,Mechanical Traction,Neuro Re- education,Therapeutic Activities,Therapeutic Exercise,Self-Care/Home Management,Ultrasound, Other Other Interventions Taping, bracing PT Services Indicated Yes Treatment Frequency and 1-2x weekly x 6 visits Duration These treatments will address the objective and functional deficits as defined above. The patient will be advanced safely and appropriately in order for the patient to progress towards his/her prior level of function. Additional exercises will be introduced and as well as a comprehensive home exercise program upon discharge, if needed, ?to ensure carryover of functional gains achieved in the clinic. This treatment plan has been reviewed and agreement upon by the patient.
--- NOTE | 2025-02-03 12:58 | OPREHPOC ---
Outpatient Therapy Plan of Care This is a Multidisciplinary Plan of Care that may contain components documented by all disciplines (PT, OT, and ST.) PT Problem 1 PT Problem #1 Knowledge Deficit PT Goal 1 Goal / Goal Update Pt will be independent in HEP Pt will verbalize understanding of diagnosis and prognosis Target Visit 10 Progress Met PT Problem 2 PT Problem #2 Impaired Balance PT Goal 1 Goal / Goal Update Pt will demonstrate Tinetti test of 20 or greater for improved balance Target Visit 5 Progress Met PT Goal 2 Goal / Goal Update Pt will demonstrate Tinetti test of 22 or greater for improved balance Target Visit 20 PT Problem 3 PT Problem #3 Impaired Sensation PT Goal 1 Goal / Goal Update Pt will demonstrate negative Michael-Halpike testing bilat Target Visit 10 Progress Met PT Goal 2 Goal / Goal Update Pt will report resolution of symptoms with sit> standing activity with or without DME Target Visit 20
== END 2025-03-01 23:59 | disposition home or self-care (01) ==
LOC: ANHHIPT 12:30
PROVIDERS: PCP Family Medicine; Visit Provider Family Medicine
DX: H81.12 Benign paroxysmal vertigo, left ear (principal); R26.2 Difficulty in walking, not elsewhere classified; R26.9 Unspecified abnormalities of gait and mobility
CPT/HCPCS: 95992; 97014; 97110; 97112; 97140; 97162; 97530; 97750; G0283

== ENCOUNTER 2025-03-10 09:45 | Outpatient (RCR) | payer OTHER, SELFPAY ==
--- NOTE | 2025-03-10 10:22 | PTOPDC ---
Assessment and note entered by Barb Castelan, PT Evaluation Information Assessment Status Discharge Diagnosis Dizziness and Giddiness ICD-10 Condition Codes (PT) Difficulty Walking R26.2,Abnormalities of gait and mobility R26.9,Dizziness and Giddiness R42 Other ICD-10 Condition Codes ( H81.12 BPPV L ear PT) Onset ~ 1 month Subjective Information Has been to her ENT, was told age related hearing loss. This ENT is also a sinus specialist. Is doing a sinus rinse and flonase and feels more open in the sinuses and feels less dizzy/wobbly than previously. sit>stand is slightly better. Standing still is ok . Rolling around in bed is ok. Bending over still gets off balance both with the bending and with the coming back to standing. Reported Pain Level Pain Score 0: Self Report Assessment PT Clinical Summary Pt has attended therapy consistently for dizziness and difficulty in mobility. Initially presented with BPPV which resolved, though patient continued to c/o dizziness, wooziness, and balance deficits . Multiple aspects of her activities were addressed including blood pressure, holding her breath, and sinuses possibly being involved. She has also since seen an ENT who has her on Flonase and doing a sinus rinse. She reports feeling less wobbly since initiating these actions. She shows improved Tinetti scores, overall and improved sensation overall. She reports greatest difficulty with bending over from standing and returning. With seated testing this resolved suggestive of LE /core instability and weakness playing a part in her difficulty. she has been educated on returning to therapy in the future if her mobility worsens or does not continue to improve independently. Pt is being discharged today per request as she feels she has met maximal benefit at this time, and she has also met all previously set goals. Plan of Care PT Services Indicated No
== END 2025-03-15 11:47 | disposition home or self-care (01) ==
LOC: ANHHIPT 09:45
PROVIDERS: PCP Family Medicine; Visit Provider Family Medicine
DX: H81.12 Benign paroxysmal vertigo, left ear (principal); R26.2 Difficulty in walking, not elsewhere classified; R26.9 Unspecified abnormalities of gait and mobility
CPT/HCPCS: 97014; 97110; 97140; 97750; G0283